=== PATIENT | female | born 2000 | race Caucasian/White ===

== ENCOUNTER 2023-08-19 14:21 | Inpatient (IN) | payer BC, SELFPAY ==
[2023-08-19] VITALS (12 sets, daily range): BP systolic 123–174; BP diastolic 74–99; PULSE 81–120; RESP 16; TEMP 36.6
[2023-08-19 15:03] LABS: Basophils Absolute Auto 0.1 10^3/uL (0.0-0.1); Basophils Percent Auto 0.5 % (0.2-2.0); Eosinophils Percent Auto 0.2 % (0.9-7.0); Hematocrit 36.8 % (36.0-48.0); Hemoglobin 12.1 g/dL (12.0-16.0); Immature Granulocytes Abs Auto 0.11 10^3/uL (0.00-0.03); Lymphocytes Absolute Auto 1.7 10^3/uL (1.2-3.8); Lymphocytes Percent Auto 15.1 % (20.5-60.0); Mean Corpuscular HGB Conc 32.9 g/dL (29.9-35.2); Mean Corpuscular Hemoglobin 28.2 pg (26.7-34.0); Mean Corpuscular Volume 85.8 fL (81.0-99.0); Mean Platelet Volume 11.7 fL (9.5-13.5); Monocytes Absolute Auto 0.5 10^3/uL (0.3-0.8); Monocytes Percent Auto 4.8 % (1.7-12.0); Neutrophils Absolute Auto 8.6 10^3/uL (1.4-6.5); Neutrophils Percent Auto 78.4 % (43.0-75.0); Platelet Count 258 10^3/uL (150-450); Red Blood Count 4.29 10^6/uL (4.20-5.40); Red Cell Distribution Width 13.1 % (11.0-15.0); White Blood Count 10.9 10^3/uL (4.0-11.0)
[2023-08-19 15:23] LABS: Alanine Aminotransferase 20 U/L (14-59); Albumin Globulin Ratio 0.7; Alkaline Phosphatase 127 U/L (46-116); Anion Gap 15.6; Aspartate Amino Transferase 21 U/L (15-37); BUN Creatinine Ratio 12.2; Bilirubin Total 0.1 mg/dL (0.2-1.0); Calcium 9.8 mg/dL (8.5-10.1); Carbon Dioxide 24.6 mmol/L (21.0-32.0); Chloride 101 mmol/L (98-107); Estimated GFR (African America >60 (>=60); Estimated GFR (Non-African Ame >60 (>=60); Globulin 4.6 g/dL; Glucose 82 mg/dL (74-106); Lactate Dehydrogenase 231 U/L (81-234); Potassium 4.2 mmol/L (3.5-5.1); Sodium 137 mmol/L (136-145); Total Protein 7.6 g/dL (6.4-8.2)
[2023-08-19 16:20] LABS: Creatinine Urine Random 48.48 mg/dL (20.00-300.00); Protein Creatinine Ratio Urine 0.57; Total Protein Urine Random 27.7 mg/dL (<=11.9)
--- NOTE | 2023-08-19 16:40 | PC.NURSE ---
Sarahy Goins CNM called with blood pressures and bloodwork and urine results, assessment. Phone transferred into room so CNM and pt can talk
[2023-08-19 17:31] LABS: Amphetamine Screen Urine NEGATIVE (NEGATIVE); Barbiturates Screen Urine NEGATIVE (NEGATIVE); Benzodiazepines Screen Urine NEGATIVE (NEGATIVE); Buprenorphine Screen Urine NEGATIVE (NEGATIVE); Cannabinoid Screen Urine NEGATIVE (NEGATIVE); Cocaine Screen Urine NEGATIVE (NEGATIVE); Methadone Screen Urine NEGATIVE (NEGATIVE); Methamphetamines Screen Urine NEGATIVE (NEGATIVE); Opiate Screen Urine NEGATIVE (NEGATIVE); Oxycodone Screen Urine NEGATIVE (NEGATIVE); Phencyclidine Screen Urine NEGATIVE (NEGATIVE); Tricyclic Antidepressant Urine NEGATIVE (NEGATIVE)
--- NOTE | 2023-08-19 18:31 | PC.NURSE ---
ambulates in [place] after bouncing on ball in room, states would like to stimulate labor versus being induced
--- NOTE | 2023-08-19 19:21 | PC.NURSE ---
report given, pt sitting upright in bed taking dinner, bp recheck after ambulating is improved, voices no complaints, states still having cramps from office exam and would like to try to stay up and stimulate labor naturally
[2023-08-20] VITALS (37 sets, daily range): BP systolic 112–156; BP diastolic 56–95; PULSE 77–153; RESP 14–20; TEMP 35.8–37.1
[2023-08-20] MEDS: OXYTOCIN 10 UNIT in 0.9 % SODIUM CHLORIDE 500 ML 6.012 UNIT IV (04:15)
[2023-08-20] MEDS: LACTATED RINGER'S SOLUTION 1,000 ML 125 ML IV ×2 (04:24→13:16)
[2023-08-20] MEDS: ACETAMINOPHEN 500 MG TABLET 1000 MG PO (07:23)
--- NOTE | 2023-08-20 12:38 | PM.EN ---
Event Note Event Note: to room to assess patient. she is up and ambulates to the bathroom and voids without difficulty. To bed and SVE performed. 2+/80/-1 SROM with sterile amni hook. Return of small amount of blood tinged, odorless fluid. heart tones stable before, during and after rupture of membranes.
[2023-08-20] MEDS: ONDANSETRON PF 4 MG/2 ML VIAL IV (15:11)
[2023-08-20] MEDS: LIDOCAINE VISCOUS 2% 15 ML SOLUTION 5 ML TOPICAL (15:30)
[2023-08-20] MEDS: LIDOCAINE HCL 1% 200 MG/20 ML MDV INJ ×2 (16:09→16:30)
[2023-08-20] MEDS: OXYTOCIN/0.9 % SODIUM CHLORIDE 20 UNITS/1,000 ML PLAST..BAG 125 UNIT IV (16:09)
--- NOTE | 2023-08-20 16:42 | PM.OBPRCVD ---
Procedure Procedure: events: Labor Induction (elevated blood pressure, proteinuria) Induction method: per pitocin protocol Delivery augmentation: rupture of membranes Delivery monitor: external FHT and external uterine Route of delivery: Episiotomy Description: none Laceration description: perineal - 2nd degree (and right periurethral ) Delivery repair: Vicryl Estimated blood loss (mL): 300 Anesthesia type: Local Disposition: no change Narrative: - Dr Dhillon called in before delivery for tones down. Patient pushing great. Baby delivered with Dr Dhillon present in room. Dr Dhillon performed repair of 2nd degree perineum. I then repaired right periurethral laceration without difficulty. Delivery date: 08/20/23 Gender: female presentation: vertex Placental delivery description: Spontaneous cord description: 3 Vessels heart rate - 1 minute: 100 bpm or Greater respiratory effort - 1 minute: Spontaneous/Strong Cry muscle tone - 1 minute: Active Movement reflex response - 1 minute: Prompt Response color - 1 minute: Pallor or Cyanosis total score - 1 minute: 8 heart rate - 5 minute: 100 bpm or Greater respiratory effort - 5 minute: Spontaneous/Strong Cry muscle tone - 5 minute: Active Movement reflex response - 5 minute: Prompt Response color - 5 minute: Bluish Hands or Feet total score - 5 minute: 9
[2023-08-20] MEDS: KETOROLAC TROMETHAMINE 30 MG/ML VIAL IVP (17:27)
[2023-08-20] MEDS: GLYCERIN/WITCH HAZEL PADS 1 PAD TOPICAL (17:28)
[2023-08-20] MEDS: BENZOCAINE/MENTHOL 85 GRAM SPRAY BOTTLE 1 APPLIC TOPICAL (17:28)
[2023-08-21] VITALS (8 sets, daily range): BP systolic 128–139; BP diastolic 78–87; PULSE 94–111; RESP 16; TEMP 36.2–37.1
[2023-08-21] MEDS: IBUPROFEN 400 MG TABLET 800 MG PO ×3 (05:33→20:59)
[2023-08-21 06:35] LABS: Basophils Percent Auto 0.3 % (0.2-2.0); Eosinophils Percent Auto 0.1 % (0.9-7.0); Hematocrit 28.5 % (36.0-48.0); Hemoglobin 8.8 g/dL (12.0-16.0); Immature Granulocytes Abs Auto 0.07 10^3/uL (0.00-0.03); Immature Granulocytes Pct Auto 0.5 % (0.0-0.5); Lymphocytes Absolute Auto 1.6 10^3/uL (1.2-3.8); Lymphocytes Percent Auto 10.5 % (20.5-60.0); Mean Corpuscular HGB Conc 30.9 g/dL (29.9-35.2); Mean Corpuscular Hemoglobin 28.6 pg (26.7-34.0); Mean Corpuscular Volume 92.5 fL (81.0-99.0); Monocytes Absolute Auto 0.8 10^3/uL (0.3-0.8); Monocytes Percent Auto 5.3 % (1.7-12.0); Neutrophils Absolute Auto 12.6 10^3/uL (1.4-6.5); Neutrophils Percent Auto 83.3 % (43.0-75.0); Platelet Count 170 10^3/uL (150-450); Red Blood Count 3.08 10^6/uL (4.20-5.40); Red Cell Distribution Width 13.2 % (11.0-15.0); White Blood Count 15.2 10^3/uL (4.0-11.0)
--- NOTE | 2023-08-21 07:12 | PC.NURSE ---
Report given to Lavinia Kim RN
[2023-08-21] MEDS: DOCUSATE SODIUM 100 MG CAPSULE PO ×2 (08:22→20:59)
--- NOTE | 2023-08-21 11:56 | P.OBPN_ITS ---
OB - PN: Subj Subjective Patient comments: no complaints and pain well controlled [place] status: doing well Exam Constitutional Vital Signs, click to edit/add: Last Vital Signs Temp 98.2 F 08/21/23 08:38 Pulse 111 H 08/21/23 08:38 Resp 16 08/21/23 08:38 BP 128/78 08/21/23 08:38 O2 Del Method Room Air 08/21/23 08:38 Documenting provider has reviewed patient's vital signs: yes Common normals: no apparent distress Respiratory Common normals: normal respiratory effort and clear to auscultation bilaterally Cardio Common normals: regular rate and regular rhythm GI Common normals: Normal to inspection, nondistended, normoactive bowel sounds present Extremity Common normals: no calf tenderness Results Labs Labs: Short CBC 08/21/23 Range/Units 06:05 WBC 15.2 H (4.0-11.0) 10^3/uL Hgb 8.8 L (12.0-16.0) g/dL Hct 28.5 L (36.0-48.0) % Plt Count 170 (150-450) 10^3/uL OB - PN: A/P Plan - Vaginal Delivery day: 1 Plan: routine care Time Spent with Patient Time: Total time spent is greater than 50% in coordination of care (as documented) at patient's floor/unit and/or counseling patient: Total time spent with greater than 50% in coordination of care (as documented) at patient's floor/unit and/or counseling patient: less than 15 minutes
--- NOTE | 2023-08-21 19:11 | W.PC.ACHO ---
Registration Status: ADM IN Primary Language: B[place]an Preferred Language: [place]an Active Medications Generic Name Dose Route Start Last Admin Trade Name Freq PRN Reason Stop Dose Admin Acetaminophen 650 mg 08/20/23 16:59 Acetaminophen 325 Mg Tablet PO Q6H PRN Mild Pain Al Hydroxide/Mg Hydroxide 2,400 mg 08/20/23 16:59 Magnesium Hydroxide 2,400 Mg/10 Ml Oral.Susp PO Q6H PRN Dyspepsia Benzocaine/Menthol 1 applic 08/20/23 16:59 08/20/23 17:28 Benzocaine/Menthol 85 Gram Bruce Bottle TOPICAL 1 applic Q2H PRN Administration Pain Diphtheria/Pertussis/Tetanus Vacc 0.5 ml 08/22/23 09:00 Adacel Diph,Pertuss(Acell),Tet Vac/Pf 0.5 Ml Adult Syringe IM 08/22/23 09:01 .ONCE ONE Docusate Sodium 100 mg 08/21/23 09:00 08/21/23 08:22 Docusate Sodium 100 Mg Capsule PO 100 mg BID PAM Administration Lactated Ringer's 1,000 mls @ 125 mls/hr 08/20/23 04:00 08/20/23 16:02 Lactated Ringers IV Infused .Q8H PAM Infusion Ibuprofen 800 mg 08/20/23 18:00 08/21/23 13:50 Ibuprofen 400 Mg Tablet PO 800 mg Q8H PAM Administration Measles/Mumps/Rubella Vaccine Live 0.5 ml 08/22/23 09:00 Measles,Mumps,Rubella Vacc/Pf 0.5 Ml Vial SQ 08/22/23 09:01 .ONCE ONE Ondansetron HCl 4 mg 08/19/23 17:05 08/20/23 15:11 Ondansetron Pf 4 Mg/2 Ml Vial IV 4 mg Q6H PRN Administration Nausea And Vomiting Ondansetron HCl 4 mg 08/19/23 17:05 Ondansetron 4 Mg Rapdis Tablet SL Q6H PRN Nausea And Vomiting Simethicone 80 mg 08/20/23 16:59 Simethicone 80 Mg Tab.Chew PO QID PRN Abdominal Distention Temazepam 15 mg 08/20/23 16:59 Temazepam 15 Mg Capsule PO QHS PRN Sleep Witch Darline/Glycerin 1 pad 08/20/23 16:59 12/22/23 17:28 Glycerin/Witch Darline Pads TOPICAL 1 pad Q2H PRN Administration Pain Respiratory Oxygen Delivery Method Room Air Oxygen Delivery Method Room Air Oxygen Delivery Method Room Air Oxygen Delivery Method Room Air Cardiology Heart Sounds Strong,Regular Heart Sounds Strong,Regular Bowels Date of Last Bowel Movement 08/20/23 Date of Last Bowel Movement 08/20/23
[2023-08-22] MEDS: IBUPROFEN 400 MG TABLET 800 MG PO (06:24)
--- NOTE | 2023-08-22 08:46 | PM.OBHP ---
OB - H&P: HPI History of Present Illness Chief complaint: INCREASED BP : 1 Para: 0 Date of last menstrual period: 11/19/22 Gestational age based on last menstrual period: 39.2 Indications for induction: maternal hypertension (elevated blood pressures and proteinuria ) History of Present Dating criteria: LMP confirmed by 1st trimester US care: good care Ultrasounds: normal 1st trimester US and normal mid trimester US complications: preeclampsia Medical complications OB: none Labs Blood type: O (+) positive Rubella: immune RPR/VDLR: nonreactive GBS status: negative HBsAG: negative Review of Systems ROS Status of ROS: 10 or more systems reviewed and unremarkable except as noted in history and below Meds Home Medications and Allergies Home Medications Medication Instructions Recorded Confirmed Type docusate sodium 100 mg capsule 100 mg PO DAILY 08/19/23 08/20/23 History ferrous sulfate 325 mg (65 mg 325 mg PO DAILY 08/19/23 08/20/23 History iron) tablet vits no.130-ferrous fum 1 tab PO DAILY 08/19/23 08/20/23 History 27 mg iron-folic acid 800 mcg tablet ( Vitamin) Allergies Allergy/AdvReac Type Severity Reaction Status Date / Time No Known Drug Allergies Allergy Verified 08/19/23 17:04 Exam Constitutional Vital Signs, click to edit/add: Last Vital Signs Temp 97.7 F 08/21/23 23:37 Pulse 105 H 08/21/23 23:31 Resp 16 08/21/23 23:40 BP 139/81 08/21/23 23:31 O2 Del Method Room Air 08/21/23 23:40 Documenting provider has reviewed patient's vital signs: yes Common normals: no apparent distress and oriented x3 HENMT Common normals: normocephalic Eye Common normals: EOMs intact bilaterally Neck & C-Spine Common normals: no lymphadenopathy Lymph Lymphatic: no lymphadenopathy noted Chest Common normals: inspection of chest normal Respiratory Common normals: normal respiratory effort Cardio Common normals: regular rate and regular rhythm Rate: regular rate Rhythm: regular rhythm GI Common normals: Normal to inspection, nondistended, normoactive bowel sounds present Common normals: no CVA tenderness Back & Pelvis Common normals: no CVA tenderness General back: CVA tenderness Extremity Common normals: normal to inspection and full ROM Neuro Common normals: oriented x3 Psych Common normals: mental status grossly normal, thought process normal and cooperative OB - A/P Assessment and Plan (1) Term : (2) Elevated blood pressure affecting in third trimester, antepartum: Plan admit for induction of labor due to elevated blood pressure and proteinuria
[2023-08-22 08:51] VITALS: BP 127/74; PULSE 103
[2023-08-22] MEDS: DOCUSATE SODIUM 100 MG CAPSULE PO (08:54)
[2023-08-22 09:05] VITALS: BP 127/74; PULSE 103; RESP 16; TEMP 37.1
--- NOTE | 2023-08-22 09:13 | PM.OBPN ---
OB - PN: Subj Subjective Patient comments: no complaints and pain well controlled Exam Constitutional Vital Signs, click to edit/add: Last Vital Signs Temp 98.7 F 08/22/23 09:05 Pulse 103 H 08/22/23 09:05 Resp 16 08/22/23 09:05 BP 127/74 08/22/23 09:05 O2 Del Method Room Air 08/22/23 09:05 Documenting provider has reviewed patient's vital signs: yes Common normals: no apparent distress Orientation/consciousness: Yes awake, Yes oriented to person, Yes oriented to place and Yes oriented to time HENMT Common normals: normocephalic Eye Common normals: PERRL General eye: normal appearance of both eyes Neck & C-Spine Common normals: full ROM General: normal visual inspection Lymph Lymphatic: no lymphadenopathy noted Chest Common normals: inspection of chest normal Respiratory Common normals: normal respiratory effort Cardio Common normals: regular rate and regular rhythm Rate: regular rate Rhythm: regular rhythm GI Common normals: Normal to inspection, nondistended, normoactive bowel sounds present Common normals: no CVA tenderness Back & Pelvis Common normals: no CVA tenderness Extremity Common normals: normal to inspection Neuro Common normals: oriented x3 Sensorium/orientation: awake, alert, oriented to person, oriented to place and oriented to time Psych Common normals: mental status grossly normal OB - PN: A/P Assessment and Plan (1) Term : (2) Elevated blood pressure affecting in third trimester, antepartum: Plan - Vaginal Delivery day: 2 Plan: discharge home Time Spent with Patient Time: Total time spent is greater than 50% in coordination of care (as documented) at patient's floor/unit and/or counseling patient: Total time spent with greater than 50% in coordination of care (as documented) at patient's floor/unit and/or counseling patient: less than 15 minutes
== END 2023-08-22 12:15 | disposition home or self-care (01) | DRG 807 ==
PROVIDERS: Admitting Provider Midwife; Visit Provider Midwife
DX: O14.94 Unspecified pre-eclampsia, complicating childbirth (principal); Z37.0 Single live birth; O70.1 Second degree perineal laceration during delivery; O71.82 Other specified trauma to perineum and vulva; O99.02 Anemia complicating childbirth; Z3A.39 39 weeks gestation of pregnancy; Z79.899 Other long term (current) drug therapy
CPT/HCPCS: 36415; 59410; 80053; 80307; 82570; 83615; 84156; 84550; 85025; 85384; 86850; 86900; 86901; 96365; 96366; 96375; 96376

== ENCOUNTER 2023-08-25 08:52 | Outpatient (OUT) | payer BC, SELFPAY ==
[2023-08-25 13:25] VITALS: BP 128/90; RESP 20; TEMP 37.3; O2SAT 97
== END 2023-08-25 11:45 | disposition home or self-care (01) ==
LOC: FBCO 08:53
PROVIDERS: Visit Provider Midwife
DX: Z39.2 Encounter for routine postpartum follow-up (principal)

== ENCOUNTER 2023-08-31 09:32 | Outpatient (OUT) | payer BC, SELFPAY ==
--- OUTSIDE RECORDS SUMMARY | 2023-08-31 09:45 | XMS_ITS | CCD ---
Author Name Unknown Address [address] [place] [address] Organization [facility] Care Team Providers Care General Claims Agent Name Role Phone AVI Goins Attending Provider KATHERIN GOINS Attending Unavailable FLORSimeon, KATHERIN Burgess Attending Unavailable FLOROKATHERIN Referring Unavailable FLORO, KATHERIN Burgess Attending Unavailable FLORO, KATHERIN Burgess Attending Unavailable FLORO, KATHERIN Burgess Attending Unavailable FLOROKATHERIN Attending Unavailable NON STAFF Primary Care Unavailable Briseida, Katherin Burgses Attending Unavailable FloroKatherin Admitting Unavailable Results Test Name Value Interpretation Reference Range Facil ity Fibrinogenon 08-19-2023 Fibrinogen 571 mg/dL High 200-393 [facility] Comment on above: Result Comment: A he matocrit value greater than 55% may lead to inaccurate results in coagulation testing. Patients having hematocrit values >55% require a special collection tube for coagulation studies. Please contact the laboratory at [phone] for redraw instructions. PERFORMED BY: [place] [address] PATHOLOGIST PHOTOGRAPHIC COLORIST TEJA DUBON M.D. Performed By: #### F IB-C #### [address] Fibrinogen [Mass/volume] in Platelet poor plasma by Coagulation assayOrdered By: Katherin Goins on 08-19-2023 Fibrinogen Coag (PPP) [Mass/Vol] 571 mg/dL 200-393 [facility] Comment on above: A hematocrit value g reater than 55% may lead to inaccurate results in coagulation testing. Patients having hematocrit values >55% require a special collection tube for coagulation studies. Please contact the laboratory at [phone] for redraw instructions. Encounters Encounter Date Encounter Type Care Provider Facility Start: 08-19-2023 End: 08-19-2023 ambulatory NON STAFF Facility:[facility] Start: 08-19-2023 End: 08-20-2023 ambulatory KATHERIN L FLORO [facility] Work Phone: Start: 08-19-2023 End: 08-19-2023 Departed Referred CONFERENCE SERVICE COORDINATOR Katherin Diaso Work Phone: [facility] [place] Work Phone: Start: 08-12-2023 End: 08-13-2023 ambulatory KATHERIN L FLORO Not Available Start: 08-05-2023 End: 08-06-2023 ambulatory KATHERIN L FLORO Not Available Start: 07-28-2023 End: 07-29-2023 ambulatory KATHERIN L FLORO Not Available Start: 07-21-2023 End: 07-22-2023 ambulatory KATHERIN L FLORO Not Available Start: 07-06-2023 End: 07-07-2023 ambulatory KATHERIN L FLORO Not Available Payers Date Payer Category Payer Self-pay 2023 Unknown [id number] 2022 Unknown [id number] 1998 Unknown [id number] 1998 Unknown [id number] .[id number] 1998 Unknown [id number] 2.16.840 .[id number] 1998 Unknown [id number] 2.16.840 .[id number] 1998 Unknown [id number] 2.16.840 .[id number] 1998 Unknown [id number] 2.16.840.1 .[id number] Unknown [id number] 2.16.8 [id number] Social History Date Type Detail Facility Tobacco smoking stat us NHIS Unknown if ever smoked [facility] Work Phone: Start: 2000 Sex Assigned At Female F [facility] Evaluation note Note Date & Type Note Facility Evaluation note No assessment information availa ble [facility] Work Phone: Summary Purpose Family History No Family History Records FoundNo Family History Records Found Advance Directives No Advanced Directives Records FoundNo Advanced Directives Records Found Additional Source Comments Care Teams (unrecognized sec tion and content) Team Status: Inactive Member Role Status Dates Katherin Goins APRN Attending Provider Active Goals (unrecognized section and content) Goals may be documented in a n alternate section INFORMATION SOURCE (unrecogn ized section and content) DATE CREATED AUTHOR 08/25/2023 [facility] EPIC DATE CREATED AUTHOR 'Leonie SZYMANSKIIZ ATION 08/29/2023 [facility] FOR RECORDS PERTAINING TO PATIENTS WHO ARE OR HAVE BEEN ENROLLED IN A CHEMICAL DEPENDENCY/SUBSTANCEABUSE PROGRAM, SOME INFORMATION MAY BE OMITTED. This clinical summary was aggregated from multiple sources. Caution should be exercised in using it in the provision of clinical care. This summary normalizes information from multiple sources, and as a consequence, information in this document may materially change the coding, format and clinical context of patient data. In addition, data may be omitted in some cases. CLINICAL DECISIONS SHOULD BE BASED ON THE PRIMARY CLINICAL RECORDS. [facility] Accountable [facility]. provides no warranty or guarantee of the accuracy or completeness of information in this document.
--- NOTE | 2023-08-31 14:34 | PC.NURSE ---
Josse White and 10 day old Miko arrive for support. Parents both smiling and states So much better feeding at the breast every feed and no further use of bottles at this time. Parents increase in wets and stools 10-12 wets and 8-10 stools. Mom states baby feeds mostly every 1.5-2 hours occasional 3.5 hour stretch at night. Usually will only take 1 breast per feed but has been doing both more frequently last couple days. States baby always falls asleep at the breast where feeds are short 5-7 minutes or really long 30+ minutes. Baby reportedly is frequently gassy, hiccups and regurg after sitting up to be burped. Miko to scales and weight up by 2 oz since last visit. Father questions if that is enough weight gain in 6 days, discussed 4-7 oz weight gain expected per week and does fall from parameters. LC does or exam with gloved fingers. 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 has difficulty lateralization to right gums, easier to left does not bring tongue to lips . weak tug of war with finger and looses suction on finger when lower jaw adjusted. Baby noted to have clicking sound even on gloved finger. Of not baby does not appear comfortable wit head lag, as fusses more and attempts to keep head from lagging. Baby to breast, mom does independent latch, which is shallow. Re-latched with assistance deeper with clicking noise softer but evident. Baby looses latch 3-4 times before maintaining latch for feed. Mom's nipple noted to be flattened on one side.(lipstick shaped) denies pain, just tender all the time also reports feels full even after she feeds Much education and handouts supporting information given to parents. They actively ask questions about suspected tongue tie and lip tie. Questions answered to satisfaction and handouts reviewed. Parents will review information and discuss at home for final decision. Shown massage and oral exercises to assist infant in better latching and feeding with suspected tongue tie. No further concerns at this time. Will return 09/03/2023 for weight check and questions. Leaves ambulatory for home.
== END 2023-08-31 13:45 | disposition home or self-care (01) ==
LOC: FBCO 09:34
PROVIDERS: Visit Provider Midwife
DX: Z39.1 Encounter for care and examination of lactating mother (principal)
CPT/HCPCS: G0463

== ENCOUNTER 2023-09-03 07:54 | Outpatient (OUT) | payer BC, SELFPAY ==
--- OUTSIDE RECORDS SUMMARY | 2023-09-03 07:59 | XMS_ITS | CCD ---
Author Name Unknown Address [address] [place] [address] Organization [facility] Care Team Providers Care Customer Liaison Name Role Phone AVI Goins Attending Provider [phone] KATHERIN GOINS Attending Unavailable FLORSimeon, KATHERIN Burgess Attending Unavailable FLOROKATHERIN Referring Unavailable FLORO, KATHERIN Burgess Attending Unavailable FLORO, KATHERIN Burgess Attending Unavailable FLORO, KATHERIN Burgess Attending Unavailable FLOROKATHERIN Attending Unavailable NON STAFF Primary Care Unavailable Briseida, Katherin Burgess Attending Unavailable FloroKatherin Admitting Unavailable Results Test Name Value Interpretation Reference Range Facil ity Fibrinogenon 08-19-2023 Fibrinogen 571 mg/dL High 200-[address] [facility] Comment on above: Result Comment: A he matocrit value greater than 55% may lead to inaccurate results in coagulation testing. Patients having hematocrit values >55% require a special collection tube for coagulation studies. Please contact the laboratory at [phone] for redraw instructions. PERFORMED BY: [place] [address] PATHOLOGIST PSYCHIATRIC AIDE INSTRUCTOR TEJA DUBON M.D. Performed By: #### F IB-C #### [address] Fibrinogen [Mass/volume] in Platelet poor plasma by Coagulation assayOrdered By: Katherin Goins on 08-19-2023 Fibrinogen Coag (PPP) [Mass/Vol] 571 mg/dL 200-[address] [facility] Comment on above: A hematocrit value g reater than 55% may lead to inaccurate results in coagulation testing. Patients having hematocrit values >55% require a special collection tube for coagulation studies. Please contact the laboratory at [phone] for redraw instructions. Encounters Encounter Date Encounter Type Care Provider Facility Start: 08-19-2023 End: 08-19-2023 ambulatory NON STAFF Facility:[facility] Start: 08-19-2023 End: 08-20-2023 ambulatory KATHERIN L FLORO [facility] Work Phone: Start: 08-19-2023 End: 08-19-2023 Departed Referred LINE SERVICE SUPERVISOR aKtherin Diaso Work Phone: [facility] [place] Work Phone: Start: 08-12-2023 End: 08-13-2023 ambulatory KATHERIN L FLORO Not Available Start: 08-05-2023 End: 08-06-2023 ambulatory KATHERIN L FLORO Not Available Start: 07-28-2023 End: 07-29-2023 ambulatory KATHERIN L FLORO Not Available Start: 07-21-2023 End: 07-22-2023 ambulatory KATHERIN L FLORO Not Available Start: 07-06-2023 End: 07-07-2023 ambulatory KATHERIN L FLORO Not Available Payers Date Payer Category Payer Self-pay 2023 Unknown [id number] 2022 Unknown [id number] 2000 Unknown [id number] 2.16.840 .[id number] 1998 Unknown [id number] 2.16.840 .[id number] 1998 Unknown [id number] 2.16.840 .[id number] 1998 Unknown [id number] 2.16.840 .[id number] 1998 Unknown [id number] 2.16.840 .[id number] 1998 Unknown [id number] 2.16.840.1 [id number] Unknown [id number] 2.16.8 [id number] Social History Date Type Detail Facility Tobacco smoking stat us NHIS Unknown if ever smoked [facility] Work Phone: Start: 2000 Sex Assigned At Female F [facility] Evaluation note Note Date & Type Note Facility Evaluation note No assessment information availa ble [facility] Work Phone: Summary Purpose Family History [...] section and content) DATE CREATED AUTHOR 08/25/2023 [facility] EPIC DATE CREATED AUTHOR 'Leonie SZYMANSKIIZ ATION 08/29/2023 [facility] FOR RECORDS PERTAINING TO PATIENTS WHO ARE [...] BE BASED ON THE PRIMARY CLINICAL RECORDS. [facility] BEAT [employer] [facility]. provides no warranty or guarantee of the accuracy or completeness of information in this document.
--- NOTE | 2023-09-03 15:08 | PC.NURSE ---
Cindy Josse and 2 week old daughter, Miko arrive for support. Parents report things are still going well. Has decided to contact Dr Ruvalcaba and Dr Toro for evaluation of suspected tongue and lip tie. Will stay in contact with LC for follow up after evaluation/possible revision. Discussed possible expectations for the day if mouth revised and care for same. Discussed on-going care and mouth exercises to aid in healing and regaining function for feeds. Baby has gained 30gms since 08/31/2023. Reviewed slow weight gain and parents are aware. Encouraged to continue plan and both want Miko to be breastfed. Baby to breast, multiple attempts to latch, latch #4 successful but remains slightly shallow, audible swallows noted and mom dripping milk from opposite breast. Audible clicking noted at intervals, does loose latch and re-latches again. Parents report continues to be gassy, fussy, multiple hiccup episodes and frequent small regurg. Will continue to do suggested exercises with baby to reduce jaw tightness, to aid in tongue lateralization, and extension. Will keep appointments and consult LC as needed. Family leaves ambulatory without complaints.
== END 2023-09-03 14:45 | disposition home or self-care (01) ==
LOC: FBCO 07:57
PROVIDERS: Visit Provider Midwife
DX: Z39.1 Encounter for care and examination of lactating mother (principal)
CPT/HCPCS: G0463

== ENCOUNTER 2023-09-14 08:21 | Outpatient (OUT) | payer BC, SELFPAY ==
--- OUTSIDE RECORDS SUMMARY | 2023-09-14 08:25 | XMS_ITS | CCD ---
Author Name Unknown Address [address] [place] [address] Organization [facility] Care Team Providers Care Bridge Painter Name Role Phone AVI Goins Attending Provider [phone] KATHERIN GOINS Attending Unavailable KATHERIN GOINS Attending Unavailable AKTHERIN GOINS Referring Unavailable KATHERIN GOINS Attending Unavailable FLOROKATHERIN Attending Unavailable FLORO, KATHERIN Burgess Attending Unavailable FLOROKATHERIN Attending Unavailable NON STAFF Primary Care Unavailable Katherin Goins Attending Unavailable FloroKatherin Admitting Unavailable Problems Problem Classification Problem Date Documented Da te Episodic/Chronic Other circulatory disease (1 source) Elevated blood-pressure reading without diagnosis of hypertension; Translations: [Elevated blood-pressure reading, without diagnosis of hypertension] Onset: 08-19-2023 Episodic Results Test Name Value Interpretation Reference Range Facil ity Fibrinogenon 08-19-2023 Fibrinogen 571 mg/dL High 200-393 [facility] Comment on above: Result Comment: A he matocrit value greater than 55% may lead to inaccurate results in coagulation testing. Patients having hematocrit values >55% require a special collection tube for coagulation studies. Please contact the laboratory at [phone] for redraw instructions. PERFORMED BY: [address] [address] PATHOLOGIST LIQUOR MERCHANT TEJA DUBON M.D. Performed By: #### F IB-C #### [address] Fibrinogen [Mass/volume] in Platelet poor plasma by Coagulation assayOrdered By: Katherin Goins on 08-19-2023 Fibrinogen Coag (PPP) [Mass/Vol] 571 mg/dL 200-393 [facility] Comment on above: A hematocrit value g reater than 55% may lead to inaccurate results in coagulation testing. Patients having hematocrit values >55% require a special collection tube for coagulation studies. Please contact the laboratory at [phone] for redraw instructions. Encounters Encounter Date Encounter Type Care Provider Facility Start: 08-19-2023 End: 08-19-2023 ambulatory NON STAFF Facility:[facility] Start: 08-19-2023 End: 08-20-2023 ambulatory KATHERIN L FLORO [facility] Work Phone: Start: 08-19-2023 End: 08-19-2023 Departed [employer] Katherin Diaso Work Phone: [facility] [place] Work Phone: Start: 08-12-2023 End: 08-13-2023 ambulatory KATHERIN L FLORO Not Available Start: 08-05-2023 End: 08-06-2023 ambulatory KATHERIN L FLORO Not Available Start: 07-28-2023 End: 07-29-2023 ambulatory KATHERIN L FLORO Not Available Start: 07-21-2023 End: 07-22-2023 ambulatory KATHERIN L FLORO Not Available Start: 07-06-2023 End: 07-07-2023 ambulatory KATHERIN L FLORO Not Available Payers Date Payer Category Payer Self-pay 2023 Unknown [id number] 2022 Unknown [id number] 2000 Unknown [id number] 2..840 .[id number] 1998 Unknown [id number] 2.840 .[id number] 1998 Unknown [id number] 2.16.840 .[id number] 1998 Unknown [id number] 2.16.840 .[id number] 1998 Unknown [id number] 2.16.840 .[id number] 1998 Unknown [id number] 2.16.840.1 .[id number] Unknown [id number] 2.16.8 [id number] Social History Date Type Detail Facility [facility] Work Phone: Start: 2000 Sex Assigned At Female F [facility] Evaluation note Note Date & Type Note Facility Evaluation note No assessment information availa ble [facility] Work Phone: Summary Purpose Family [...] section and content) DATE CREATED AUTHOR 08/25/2023 [facility] DATE CREATED AUTHOR AUTHOR'S ORGANIZ ATION 09/03/2023 [facility] FOR RECORDS PERTAINING TO PATIENTS WHO ARE [...] BE BASED ON THE PRIMARY CLINICAL RECORDS. [employer] provides no warranty or guarantee of the accuracy or completeness of information in this document.
--- NOTE | 2023-09-14 16:34 | PC.NURSE ---
Josse White and 3 week old daughter Miko arrive for support post tongue and lip tie revision on 09/09/[address] Ruvalcaba. Cindy states improvement in latch and more comfortable during feed. States Miko continues to slip back to old latch when tired or at the end of the feed. Miko's mouth appears to be healing well. Parents continue to do stretches as instructed every 4 hours. Wound at upper lip healing well, does not appear to be reattaching at this time. Frenulum wound also appears to be healing appropriately. Parents shown exercises to assist in muscle relaxation and strengthening post revision. Demo of fishy face, hip hop gapes, lower lip stim, lip pucker and pterygoid stretches. Miko tolerates demo well. Parents able to return demo. States confident in ability to continue. Parents also shown to do Hip massages and rib cage rocks when baby has the hiccups. Improvement noted during latching and feeding. Baby willing to latch in footall hold easily and no clicking noted. Deep latch with audible swallows. Parents plan to see 09/27/2023 for further support. Leaves ambulatory.
== END 2023-09-14 15:10 | disposition home or self-care (01) ==
LOC: FBCO 08:22
PROVIDERS: Visit Provider Obstetrics & Gynecology
DX: Z39.1 Encounter for care and examination of lactating mother (principal)

== ENCOUNTER 2023-09-27 08:50 | Outpatient (OUT) | payer BC, SELFPAY ==
--- OUTSIDE RECORDS SUMMARY | 2023-09-27 08:55 | XMS_ITS | CCD ---
Author Name Unknown Address [address] [place] [address] Organization [facility] Care Team Providers Care Special Education Case Manager Name Role Phone AVI Goins Attending Provider KATHERIN GOINS Attending Unavailable KATHERIN GOINS Attending Unavailable KATHERIN GOINS Referring Unavailable KATHERIN GOINS Attending Unavailable [...] Fibrinogenon 08-19-2023 Fibrinogen 571 mg/dL High 200-393 [facility] Comment on above: Result Comment: A he matocrit value greater than 55% may lead to inaccurate results in coagulation testing. Patients having hematocrit values >55% require a special collection tube for coagulation studies. Please contact the laboratory at [phone] for redraw instructions. PERFORMED BY: [address] [address] PATHOLOGIST CLERICAL SUPPORT TEJA DUBON M.D. Performed By: #### F IB-C #### [address] Fibrinogen [Mass/volume] in Platelet poor plasma by Coagulation assayOrdered By: Katherin Goins on 08-19-2023 Fibrinogen Coag (PPP) [Mass/Vol] 571 mg/dL 200-393 [facility] Comment on above: A hematocrit value g reater than 55% may lead to inaccurate results in coagulation testing. Patients having hematocrit values >55% require a special collection tube for coagulation studies. Please contact the laboratory at [phone] for redraw instructions. Encounters Encounter Date Encounter Type Care Provider Facility Start: 08-19-2023 End: 08-19-2023 ambulatory NON STAFF Facility:[facility] Start: 08-19-2023 End: 08-20-2023 ambulatory KATHERIN L FLORO [facility] Work Phone: Start: 08-19-2023 End: 08-19-2023 Departed [employer] Katherin Diaso Work Phone: [facility] [place] Work Phone: Start: 08-12-2023 End: 08-13-2023 ambulatory KATHERIN L FLORO Not Available Start: 08-05-2023 End: 08-06-2023 ambulatory KATHERIN L FLORO Not Available Start: 07-28-2023 End: 07-29-2023 ambulatory KATHERIN L FLORO Not Available Start: 07-21-2023 End: 07-22-2023 ambulatory KATHERIN L FLORO Not Available Start: 07-06-2023 End: 07-07-2023 ambulatory KATHERIN L FLORO Not Available Payers Date Payer Category Payer Self-pay 2023 Unknown [id number] 2022 Unknown [id number] 2000 Unknown [id number] 2..840 .[id number] 1998 Unknown [id number] 2.840 .[id number] 1998 Unknown [id number] 2.16.840 .[id number] 1998 Unknown [id number] 2.16.840 .[id number] 1998 Unknown [id number] 2.16.840 .[id number] 1998 Unknown [id number] 2.16.840.1 .[id number] Unknown [id number] 2.16.8 [id number] Social History Date Type Detail Facility [facility] Work Phone: Start: 2000 Sex Assigned At Female F [facility] Evaluation note Note Date & Type Note Facility Evaluation note No assessment information availa ble [facility] Work Phone: Summary Purpose Family [...] section and content) DATE CREATED AUTHOR 08/25/[address] [facility] dical Specialists [facility] DATE CREATED AUTHOR AUTHOR'S ORGANIZ ATION 09/03/2023 [facility] FOR RECORDS PERTAINING TO PATIENTS WHO ARE [...] BE BASED ON THE PRIMARY CLINICAL RECORDS. [employer] provides no warranty or guarantee of the accuracy or completeness of information in this document.
--- NOTE | 2023-09-27 15:28 | PC.NURSE ---
Josse White and 5 week+3 day old daughter Miko arrive for support. Parents states has had major improvements with latches and feeds post tongue and lip tie revision. Continues to do exercises with Miko to relax mouth and strengthen post revision. Weight continues to go up, parents pleased with progress. Baby continues to have multiple wets and stools daily. Support and discussion continues as questions arise. Family doing well. No concerns at this time. No further appointment at this time. Aware to call for concerns, and of MOMS support group. Leaves ambulatory.
== END 2023-09-27 14:50 | disposition home or self-care (01) ==
LOC: FBCO 08:53
PROVIDERS: Visit Provider Obstetrics & Gynecology
DX: Z39.1 Encounter for care and examination of lactating mother (principal)
CPT/HCPCS: G0463